=== PATIENT | male | born 1980 | race American Indian/Alaskan Native ===

== ENCOUNTER 2017-02-20 11:53 | Emergency (ER) | payer SELFPAY ==
[2017-02-20] MEDS ORDERED: NACL 0.9% 1000 ML 1,000 ML IV ONE (14:26)
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
[2017-02-20] MEDS ORDERED: MORPHINE IV ONE ×2 (14:39→22:02)
[2017-02-20] MEDS ORDERED: CLEOCIN 600 MG/50 mL 600 MG/50 ML BAG IV ONE (15:10)
[2017-02-20 16:01] LABS: Basophils % (Auto) 0.4 % (0.0-1.8); Eosinophils % (Auto) 0.3 % (0.0-4.3); Hematocrit 40.7 % (35.5-45.6); Hemoglobin 13.5 gm/dl (11.8-15.2); Mean Corpuscular HGB Conc 33 % (32-34); Mean Corpuscular Hemoglobin 31 pg (28-32); Mean Corpuscular Volume 93 fl (84-94); Platelet Count 221 K/mm3 (140-440); Red Cell Distribution Width 13.6 % (13.2-15.2)
[2017-02-20 16:09] LABS: INR 1.07 (0.87-1.13); Partial Thromboplastin Time 30.5 Sec. (24.2-36.6)
[2017-02-20 16:19] LABS: Anion Gap 19 mmol/L; Blood Urea Nitrogen 7 mg/dL (9-20); Carbon Dioxide 28 mmol/L (22-30); Chloride 93.2 mmol/L (98-107); Glucose 92 mg/dL (75-100); Potassium 3.4 mmol/L (3.6-5.0); Sodium 137 mmol/L (137-145)
[2017-02-20] MEDS ORDERED: LACTATED RINGERS 1,000 ML IV ONE (16:44)
[2017-02-20] MEDS ORDERED: TYLENOL PO ONE (16:45)
[2017-02-20] MEDS ORDERED: NACL ONE (17:30)
--- NOTE | 2017-02-20 18:33 | Cat Scan Report ---
FINAL REPORT EXAM: CT NECK W CON HISTORY: swelling and pain TECHNIQUE: CT of neck with intravenous contrast PRIORS: None. FINDINGS: There is lucency seen with dental caries left 3rd lower molar. There is adjacent low-density periodontal collection along the mandible measuring 2.6 x 1.1 centimeters. There is adjacent inflammatory appearing change there is several enlarged left submandibular lymph nodes largest 1.2 x 2.3 centimeters. There also some prominent left internal jugular chain nodes present. No additional abnormal mass identified within neck. Parapharyngeal soft tissues are unremarkable. Major vascular structures are within normal limits. IMPRESSION: Left periodontal abscess with dental caries of the 3rd molar and reactive lymphadenopathy
[2017-02-21 02:49] VITALS: BP 165/87
== END 2017-02-21 01:40 | disposition other institution (70) ==
LOC: ED 11:53
DX: K04.4 Acute apical periodontitis of pulpal origin (principal); K02.9 Dental caries, unspecified; R25.2 Cramp and spasm; K08.89 Other specified disorders of teeth and supporting structures; D72.829 Elevated white blood cell count, unspecified; F17.200 Nicotine dependence, unspecified, uncomplicated; F12.10 Cannabis abuse, uncomplicated
CPT/HCPCS: 36415; 70491; 80048; 82140; 85025; 85610; 85730; 87040; 93005; 93010; 96361; 96365; 96375; 99285; J2270; J2920; J7030; J7120; Q9967